=== PATIENT | female | born 1940 | race Caucasian/White ===

== ENCOUNTER → 2019-09-30 | Outpatient (CLI) | payer MEDICARE, OTHER | END | disposition home or self-care (01) | LOC: LAB SHORT 12:07 → PLD 12:07 | DX: D48.5 Neoplasm of uncertain behavior of skin (principal) | CPT/HCPCS: 88305 ==

== ENCOUNTER → 2020-02-01 | Outpatient (CLI) | payer MEDICARE, OTHER | LOC: LAB SHORT 09:04 → PLD 09:04 → LAB SHORT 02-02 09:45 | DX: D48.5 Neoplasm of uncertain behavior of skin (principal) | CPT/HCPCS: 88305 ==

== ENCOUNTER → 2020-08-01 | Outpatient (CLI) | payer MEDICARE, OTHER ==
[~2020-08-01] MED LIST: BLOOD PRESSURE; EUTHYROX50 MCG PO; WARF5 PO; WARF6 PO
== END | disposition home or self-care (01) ==
LOC: LAB 13:34 → LAB SHORT 13:34
DX: A49.9 Bacterial infection, unspecified (principal)
CPT/HCPCS: 87070; 87205

== ENCOUNTER 2020-09-23 20:17 | Emergency (ER) | payer MEDICARE, OTHER ==
[~2020-09-23] VITALS: Ht 160 cm; Wt 90.7 kg
[2020-09-23] MEDS ORDERED: WARF6 PO (20:56)
[2020-09-23] MEDS ORDERED: WARF5 PO (20:56)
[2020-09-23] MEDS ORDERED: EUTHYROX50 MCG PO (20:57)
[2020-09-23] MEDS ORDERED: BLOOD PRESSURE (21:00)
== END 2020-09-23 22:40 | disposition home or self-care (01) ==
LOC: ER 20:17
DX: S80.12XA Contusion of left lower leg, initial encounter (principal); S50.11XA Contusion of right forearm, initial encounter; Z88.0 Allergy status to penicillin; Z88.2 Allergy status to sulfonamides; Z79.01 Long term (current) use of anticoagulants; W01.190A Fall on same level from slipping, tripping and stumbling with subsequent striking against furniture, initial encounter
CPT/HCPCS: 73590; 73630; 99283-25

== ENCOUNTER → 2021-01-30 | Outpatient (CLI) | payer MEDICARE, OTHER | END | disposition home or self-care (01) | LOC: LAB SHORT 13:44 | DX: D22.4 Melanocytic nevi of scalp and neck (principal) | CPT/HCPCS: 88305 ==

== ENCOUNTER 2021-08-05 12:25 | Inpatient (IN) | payer MEDICARE, OTHER ==
[~2021-08-05] VITALS: Ht 160 cm; Wt 108.0 kg
[2021-08-05 12:48] LABS: BASOPHILS ABSOLUTE AUTO 0.05 K/mm3 (0.00-0.23); BASOPHILS PERCENT AUTO 1 % (0-2); EOSINOPHILS ABSOLUTE AUTO 0.16 K/mm3 (0.00-0.68); EOSINOPHILS PERCENT AUTO 4 % (0-6); Hematocrit 46.9 % (33.0-51.0); Hemoglobin 14.7 g/dL (11.5-16.0); IMMATURE GRAN ABSOLUTE AUTO 0.01 K/mm3 (0.00-0.10); IMMATURE GRAN PERCENT AUTO 0 % (0-1); LYMPHOCYTES PERCENT AUTO 27 % (21-46); MONOCYTES ABSOLUTE AUTO 0.54 K/mm3 (0.16-1.47); MONOCYTES PERCENT AUTO 13 % (4-13); Mean Corpuscular HGB Conc 31.3 g/dL (31.5-36.5); Mean Corpuscular Volume 96 fL (80-100); Mean Platelet Volume 11.1 fL (9.1-12.4); NEUTROPHILS ABSOLUTE AUTO 2.23 K/mm3 (1.96-9.15); NEUTROPHILS PERCENT AUTO 55 % (41-73); Platelet Count 176 K/mm3 (150-400); RDW Coefficient Variation 13.3 % (11.7-14.2); RDW Standard Deviation 47.4 fL (35.1-46.3); White Blood Cell Count 4.09 K/mm3 (4.00-11.30)
[2021-08-05 13:09] LABS: Alanine Aminotransfer (ALT/SGP 29 U/L (12-78); Albumin, Blood 3.5 g/dL (3.4-5.0); Alk Phos 72 U/L (50-136); Anion Gap 4 mmol/L (6-16); Aspartate Aminotrans (AST/SGOT 16 U/L (12-37); Bilirubin, Total 0.5 mg/dL (0.1-1.0); Blood Urea Nitrogen 15 mg/dL (8-24); Bun/Creatinine Ratio 18.5 (12.0-20.0); CO2, Blood 28 mmol/L (21-32); Chloride, Blood 108 mmol/L (98-108); Creatinine, Blood 0.81 mg/dL (0.40-1.00); Globulin, Blood 3.6 g/dL (2.2-4.0); Glomerular Filtration Rate >60 (60-); Glucose, Blood 119 mg/dL (70-99); Potassium, Blood 4.5 mmol/L (3.5-5.5); Sodium, Blood 140 mmol/L (136-145); Total Protein, Blood 7.1 g/dL (6.4-8.2)
[2021-08-05 13:37] LABS: International Normalized Ratio 1.88; Prothrombin Time Results 18.9 Sec (9.7-11.5)
[2021-08-05 15:20] LABS: Source, Urine Foley catheter
[2021-08-05 16:32] LABS: U Amphetamine Screen Not Detected; U Barbituate Screen Not Detected; U Benzodiazapine Screen Not Detected; U Buprenorphine Screen Not Detected; U Cannabinoids Screen Not Detected; U Cocaine Screen Not Detected; U Methadone Screen Not Detected; U Methamphetamine Screen Not Detected; U Opiates Screen Not Detected; U Oxycodone Screen Not Detected; U Phencyclidine Screen Not Detected; U Propoxyphene Screen Not Detected
[2021-08-05 16:39] LABS: Bilirubin, Urine Neg (Neg); Blood, Urine Neg (Neg); Glucose Qualitative, Urine Neg (Neg); Ketones, Urine Neg (Neg); Leukocyte Esterase, Urine Neg (Neg); Nitrite, Urine Neg (Neg); Protein, Urine 1+ (Neg); Urobilinogen, Urine NORM (Normal)
[2021-08-05 16:40] LABS: Appearance, Urine Clear (Clear); Color, Urine Pale Yellow (P-Yellow)
[2021-08-06 04:27] LABS: BASOPHILS ABSOLUTE AUTO 0.03 K/mm3 (0.00-0.23); BASOPHILS PERCENT AUTO 0 % (0-2); EOSINOPHILS ABSOLUTE AUTO 0.01 K/mm3 (0.00-0.68); EOSINOPHILS PERCENT AUTO 0 % (0-6); Hematocrit 40.9 % (33.0-51.0); IMMATURE GRAN ABSOLUTE AUTO 0.02 K/mm3 (0.00-0.10); IMMATURE GRAN PERCENT AUTO 0 % (0-1); LYMPHOCYTES ABSOLUTE AUTO 0.89 K/mm3 (0.84-5.20); LYMPHOCYTES PERCENT AUTO 13 % (21-46); MONOCYTES ABSOLUTE AUTO 0.51 K/mm3 (0.16-1.47); MONOCYTES PERCENT AUTO 7 % (4-13); Mean Corpuscular HGB 30.2 pg (26.0-34.0); Mean Corpuscular HGB Conc 31.8 g/dL (31.5-36.5); Mean Corpuscular Volume 95 fL (80-100); Mean Platelet Volume 11.1 fL (9.1-12.4); NEUTROPHILS ABSOLUTE AUTO 5.66 K/mm3 (1.96-9.15); NEUTROPHILS PERCENT AUTO 80 % (41-73); Platelet Count 190 K/mm3 (150-400); RDW Coefficient Variation 13.1 % (11.7-14.2); RDW Standard Deviation 46.4 fL (35.1-46.3); Red Blood Cell Count 4.31 M/mm3 (3.80-5.20); White Blood Cell Count 7.12 K/mm3 (4.00-11.30)
[2021-08-06 04:55] LABS: Alanine Aminotransfer (ALT/SGP 27 U/L (12-78); Albumin, Blood 2.9 g/dL (3.4-5.0); Albumin/Globulin Ratio 0.9 (0.8-1.8); Alk Phos 62 U/L (50-136); Anion Gap 5 mmol/L (6-16); Aspartate Aminotrans (AST/SGOT 18 U/L (12-37); Bilirubin, Total 0.7 mg/dL (0.1-1.0); Blood Urea Nitrogen 13 mg/dL (8-24); Bun/Creatinine Ratio 18.1 (12.0-20.0); CO2, Blood 27 mmol/L (21-32); Calcium, Blood 8.9 mg/dL (8.5-10.1); Chloride, Blood 110 mmol/L (98-108); Creatinine, Blood 0.72 mg/dL (0.40-1.00); Globulin, Blood 3.2 g/dL (2.2-4.0); Glomerular Filtration Rate >60 (60-); Glucose, Blood 144 mg/dL (70-99); Potassium, Blood 3.8 mmol/L (3.5-5.5); Sodium, Blood 142 mmol/L (136-145); Total Protein, Blood 6.1 g/dL (6.4-8.2)
--- NOTE | 2021-08-06 05:54 | NUR ---
End of shift summary Overnoc was overall stable, pt mentation/ exp aphasia slowly improving, she is starting to form short sentences, and express her needs, she gets very frustrated trying to find the right word, and teers up, she has difficulty following commands as well, so possibilty of receptive aphasia too. VSS, 1-2L NC while asleep, room air when awake, internittent abdominal pain/ nausea, will continue to monitor JULIANE Mclaughlin
--- NOTE | 2021-08-06 17:09 | NUR ---
PT SUMMARY: PT TRANSITIONED TO MEDICAL STATUS WITH TELE. PT ALERT AND TALKING HAS EXPRESSIVE APHASIA GETS FRUSTRATED KEEPS SAYING "I DONT KNOW WHAT YOU WANT ME TO DO.." CAN ONLY STATE NAME ELIZABETH, ORIENTED TO FAMILY. PT WAS YELLING OUT THIS AM ASKING TO USE THE BATHROOM GOT FRUSTRATED INSISTED TO USE THE BEDSIDE COMMODE GOT A LITTLE IMPULSIVE HAS POSSIBLY SOME APRAXIA TOO UNABLE TO FOLLOW SOME COMMANDS OR HAS SOME POOR DEPARTMENT STORE DOOR GREETER HOWEVER PT WAS ABLE TO STAND AND TRANSFER TO BEDSIDE COMMODE WITH NO ISSUES ONE PERSON ASSISTS. PT WAS ABLE TO WORK WITH THE PHYSICAL THERAPIST AND VERIFIED 1PA FOR TRANSFERS. AWAITING FOR PT TO GET EVALUATED BY SPEECH THERAPIST IN AM, ORAL SWABS OFFERED AND DONE FOR THE SHIFT. PT ABLE TO HELP SELF TURN AND REPOSITION IN BED, RECEIVED A BED BATH TODAY, NO BM REPORTED PT NO SUCCESS IN BSC THIS SHIFT. PETERSON DRAINING YELLOW URINE WITH RED SEDIMENTS VIA GRAVITY. FAMILY AT BEDSIDE ALL SHIFT UPDATED REGARDING PT'S STATUS. VITALS HRR SR 70'S, BP SYSTOLIC 130'S, SATS ABOVE 95% ON RA, AFEBRILE. DENIES ANY KIND OF PAIN/DISCOMFORT. LR RUNNING AT 75MLS/HR NO OTHER ISSUES REPORTED. CALL LIGHTS IN REACH WILL REPORT TO ONCOMING SHIFT
--- NOTE | 2021-08-07 17:38 | NUR ---
PT SUMMARY: NO ACUTE CHANGE FOR THE SHIFT VITALS REMAINED STABLE. PT WORKED WITH SPEECH THERAPIST TODAY DIET RESUMED, ON REGULAR DIET, PT TOLERATED WELL. 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 PAIN MEDICINE GIVEN ONCE AND WAS EFFECTIVE. AT BEDSIDE ALL SHIFT WAS EMOTIONAL ABOUT PT'S SITUATION. EXPRESSIVE APHASIA SLIGHTLY IMPROVING, PT WAS GIVEN PEN AND BOARD FOR PT TO PRACTICE WRITING. NO OTHER ISSUES REPORTED, PETERSON DRAINING YELLOW URINE VIA GRAVITY. PT NOW EATING DINNER, CALL LIGHTS IN REACH WILL REPORT TO ONCOMING SHIFT
[2021-08-08 03:47] LABS: CHOL/HDL RATIO 3.6; Cholesterol 153 mg/dL (50-200); HDL Cholesterol 43 mg/dL (>39); LDL/HDL RATIO 2.1; Low Density Lipoprotein Chol 92 mg/dL (0-110); Triglycerides 92 mg/dL (30-160); Very Low Density Lipoprot Chol 18 mg/dL (6-32)
--- NOTE | 2021-08-08 04:58 | NUR ---
End of shift summary Pt Neuro has much improved, conversations starting to make sense, she is asking appropriate questions at times, she appears hopefully and less emotional tonight, VSS, no N/V overnoc like last night, will continue to monitor JULIANE Mclaughlin
--- NOTE | 2021-08-08 08:33 | NUR ---
NURSING PCU DAYSHIFT: Assumed care of pt at approx 0700. Alert, mildly anxious, noted expressive and receptive aphasia. Difficulty expressing needs though is cooperative w/care. Does not appear to be in any discomfort at this time. Pupils equal, general weakness noted but strength is bilaterally equal, no facial droop. Skin is fragile, discoloration to BLE, no breakdown noted. Tele in place, NSR w/HR 70's, SBP 150's, trace BLE edema. L/S cta in upper lobes, fine bibasilar crackles, O2 sat 99% on RA, no noted dyspnea or cough. Abd obese, SNT, BT+, FC w/stat lock in place draining clear/pink tinged urine. PIV x1, s/l. S/O at bedside this a.m. Discussed desire to take patient home with H/H instead of SNF. Pt OOB to chair using FWW and SBA, tolerated well. S/O assisting patient with breakfast. No needs identified at this time, s/o denies any current questions/needs. Call light in reach, safety alarms used when pt alone in room. Awaiting rounding from PMD, cont to monitor for any changes.
--- NOTE | 2021-08-08 11:09 | NUR ---
Supportive visit this afternoon. Spoke with Dr Rivera, Primary RN [facility], discussed case and concerns. Pt sitting in chair upon arrival. Pt has family member sitting beside her. Pt attempts to respond with some responses that are non sensical and some that appear appropriate. Spoke with Pt's spouse Gigi and Pt's brother. Answered questions and offered therapeutic listening. Reviewed plan of care, discussed recommendations and options. Family expresses appreciation and report plan to discuss options amongst each other before making a decision. Palliative Care will remain available.
--- NOTE | 2021-08-08 17:37 | NUR ---
NURSING PCU DAYSHIFT SUMMARY: No significant changes noted t/o the shift. VS have remained stable, cardiac and respiratory status unchanged. Pt worked with PT/OT/ST t/o the shift and spent majority of the day OOB in a chair, tolerated well. Ambulated approx 250 ft t/o the halls with and w/o FWW, no issues. Continues to experience expressive and receptive aphasia without improvement from a.m. assessment. Early in shift pt appeared to have abd discomfort, bowel care started by PMD and miralax administered. Able to have medium formed BM with a lot of straining and continues to pass gas though no abd complaints at this time. Has demonstrated intermittent discomfort of RUE approx 3x today though resolves within seconds. Ext remains w/good perfusion, no swelling, good rotation w/o discomfort. S/O has been at bedside t/o most of the shift. Becomes very anxious at times though appears related to concern for wifes current medical status. A lot of education has been provided to s/o and other family throughout the day and has been received well. No s/s of acute distress at this time. Call light in reach of family members, continue to monitor for any changes.
--- NOTE | 2021-08-08 22:15 | NUR ---
PT IS ALERT AND IS RESPONDING TO SOME OF THE QUESTIONS ASKED TO HER. PT SHOWS NO PHYSICAL DEFICIT BUT APHASIA STILL PRESENT. VSS AND O2 SATS >92% ON RM AIR. PT DENYING ANY FURTHER NEEDS AT THIS TIME.
--- NOTE | 2021-08-09 05:58 | NUR ---
FLOORING HELPER SUMMARY PT IS ALERT AND ORIENTED ALTHOUGH AT TIMES HER APHASIA MAKES IT SEEM THOUGH SHE IS CONFUSED BUT WHEN GIVEN THE PROPER TIME AND ASSITANCE THE PT CAN RESPOND APPROPRIATELY TO QUESTIONS ASKED. PT HAS BEEN ABLE TO AMBULATE TO THE BATHROOM SEVERAL TIMES THIS SHIFT W MINIMAL ASSISTANCE USING THE FWW. PT VOIDING WELL ALTHOUGH SHE IS HAVING TRACE BLEEDING IN THE TOILET WHEN VOIDING FROM UNKNOWN LOCATION. VSS AND O2 SATS >92% ON RM AIR. NO PHYSICAL DEFICITS NOTED THIS SHIFT. PT APPEARED TO BE VERBALIZING BETTER TOWARDS THE END OF THE SHIFT TALKING IN COMPLETE APPROPRIATE SENTANCES. TELE SHOWING SR 70'S THIS SHIFT. WILL REPORT TO ONCOMING RN.
--- NOTE | 2021-08-09 16:17 | NUR ---
Pt sitting in chair with family at bedside. Pt denies discomfort at this time. Pt appears to still be struggling with expressive aphasia but appears cheerful. Spoke with Pt's spouse Gigi and their daughter regarding considering completing POLST. Gigi and daughter are agreeable to complete POLST for Pt. Educated on life sustaining treatments including risk factors of CPR and each section to complete. Educated on each option. Assisted with completing POLST per family request. Pt's wishes on POLST are for DNR and Limited Treatment. Family express appreciation and report no other concerns at this time. Spoke with Dr Rivera. Dr Rivera will sign POLST when she rounds tomorrow. Palliative Care will deliver copy of POLST to medical records upon MD signature.
--- NOTE | 2021-08-09 17:36 | NUR ---
PT SUMMARY: NO ACUTE CHANGE FOR THE SHIFT. PT TO DISCHARGE TO IRU UP IN [place], DIRECTOR INSTRUMENTATION UPDATED THE FAMILY AT BEDSIDE, PT TO HAVE COVID TEST AND HAS TO BE TRANSFERRED WITHIN 48 HRS ONCE COVID TEST REUSLT RECEIVED. PT WORKED WITH PT/OT/ST TODAY. GOT UP AND AMBULATED AROUNF THE UNIT WITH A CANE, HAS BEEN GETTING UP TO USE THE BATHROOM AND UP IN THE CAHIR FOR MEALS. VITALS HAS BEEN STABLE. ABLE TO MAKE NEEDS KNOWN, APHASIA SEEMS TO BE IMPROVING PER THERAPISTS. PT C/O TINGLING/NUMBNESS ON RIGHT ARM WHERE PIV WAS PLACED COBAN REMOVED PT OFFERED ROLLED WASHCLOTH FOR PT TO SQUEEZE AND EXERCISE HAND, PT REPORTED IT WAS HELPING. NO OTHER ISSUES REPORTED, PT EATING AND DRINKING GREAT. FAMILY AT BEDSIDE MOST OF THE SHIFT. WILL REPORT TO ONCOMING SHIFT
--- NOTE | 2021-08-09 20:38 | NUR ---
Assumed care 1900. It is difficult to assess orientation due to severe expressive aphasia. I attempted written communitcation with pt and she did write out some answers, but also wrote things not related to questions. Pt is alert. Movement in bilateral arms and bilateral legs are equal. Pupils are reactive to light and equal. Evening meds given whole with thin liquids without any difficulty. VSS on RA.
--- NOTE | 2021-08-09 22:56 | NUR ---
Tele notified of more frequent PACs, VSS will continue to monitor.
--- NOTE | 2021-08-10 04:00 | NUR ---
Equipment Operator/Laborer/Supervisor Note: Pt has moderate-severe expressive/receptive aphasia. Difficult to assess orientation. Pt follows directions well and uses the call light properly. Written communication attempted with little success. Bilateral upper and lower extremities appear equal and strong when assessed. Pupils equal and reactive. VSS on RA. Tele: SR w/ frequent PACs, 60s. Pt up to bathroom with minimal assist, mainly just supervision.
--- NOTE | 2021-08-10 13:48 | NUR ---
Pt resting in bed with spouse at bedside. Pt appears to be in good spirits. Pt denies pain and discomfort at this time. Pt and spouse report no concerns at this time. Hospitalist has signed POLST. Obtained copies for medical record and copy placed in chart to go with Pt to facility. Returned original POLST to spouse with instructions to hang on refridgerator. Spoke with Primary RN Marily and discussed case. Pt to D/C to IRU tomorrow. Delivered copy of Pt's POLST and AD to medical records. Palliative Care will remain available.
[2021-08-10 15:52] LABS: Influenza A, PCR NEGATIVE (NEGATIVE); Influenza B, PCR NEGATIVE (NEGATIVE); Resp Syncytial Virus, PCR NEGATIVE (NEGATIVE); SARS-Cov-2 (COVID-19) PCR, MMC NEGATIVE (NEGATIVE)
--- NOTE | 2021-08-10 17:30 | NUR ---
SHIFT SUMMARY; ASSUMED CARE AT 0700. A/A/OX3. EXPRESSIVE APHAGIA REMAINS. WORSE AT TIMES THAN OTHERS. UNDERSTANDS AND FOLLOWS DIRECTIONS. ATTEMPTS TO RESPOND TO QUESTIONS BUT AT TIMES HAS WORD SALAD. AMBULATES WITH STANDBY ASSIST. SHOWER TODAY WITH ASSISTANCE. SPOUSE AT BESIDE MOST OF DAY. COMPLETES ADL'S WITH MINIMAL ASSISTANCE. PLAN TO TRANSFER TOMORROW TO REHAB IN [facility] SET UP FOR 10AM. WILL CONTINUE TO MONITOR AND TREAT UNITL CHANGE OF SHIFT.
--- NOTE | 2021-08-10 20:45 | NUR ---
Assumed care 1900. VSS on RA. Pt resting in chair, scheduled meds given per orders. Expressive and receptive aphasia. All extremities are moving equally.
--- NOTE | 2021-08-11 04:42 | NUR ---
Armed Security Officer Note: Pt is alert, difficult to assess orientation due to expressive aphasia. Pt does not appear to be confused at this time, using call light appropriatly. VSS on RA. Tele: 70-80s. Pt slept well overnight. Pt will d/c to inpt rehab at 10am 08/11/21 per notes. COVID test was negative, see results.
--- NOTE | 2021-08-11 10:20 | NUR ---
NO ACUTE EVENTS SINCE START OF SHIFT, VSS. PT ALERT AND ORIENTED, ABLE TO CALL APPROPRIATELY AND FOLLOW COMMANDS. AGREEABLE TO CARE. PT ABLE TO AMBULATE TO THE BATHROOM WITH ONLY STANDBY ASSISTANCE FOR SAFETY. NO SIGNS OF ACUTE DISTRESS. TAKEN BY TRANSPORT BY WHEELCHAIR FOR TRANSFER TO FACILITY. PT'S AND FAMILY AT BEDSIDE AT TIME OF DEPARTURE, QUESTIONS ANSWERED TO SATISFACTION. REPORT GIVEN TO CAESAR CARDOZO AT [facility], ALL QUESTIONS ANSWERED.
== END 2021-08-11 10:11 | disposition home or self-care (01) | DRG 64 ==
LOC: ER 12:25 → PCU 17:32
PROVIDERS: Internal Medicine; Physician Assistant; ADMIT Internal Medicine
DX: I63.81 Other cerebral infarction due to occlusion or stenosis of small artery (principal); G93.6 Cerebral edema; Z66 Do not resuscitate; Z51.5 Encounter for palliative care; Z20.822 Contact with and (suspected) exposure to COVID-19; R73.03 Prediabetes; I10 Essential (primary) hypertension; E03.9 Hypothyroidism, unspecified; R29.810 Facial weakness; R47.01 Aphasia; K59.00 Constipation, unspecified; Z86.718 Personal history of other venous thrombosis and embolism; Z98.890 Other specified postprocedural states; Z88.0 Allergy status to penicillin; Z88.2 Allergy status to sulfonamides; Z79.01 Long term (current) use of anticoagulants; Z79.899 Other long term (current) drug therapy
CPT/HCPCS: 0241U; 36415; 51702; 70450; 70496; 70498; 70551; 71045; 80053; 80061; 82947; 83036; 84443; 85025; 85610; 92507; 92523; 92610; 93005; 93010; 93306; 96374; 96375; 96376; 97110; 97116; 97129; 97161; 97166; 97530; 97535; 99285-25; A9270; J1650; J2405; J3010; J7030; J7120; Q9967

== ENCOUNTER 2021-08-29 11:13 | Inpatient (IN) | payer MEDICARE, OTHER ==
[~2021-08-29] VITALS: Ht 160 cm; Wt 100.0 kg
[2021-08-29 11:50] LABS: BASOPHILS ABSOLUTE AUTO 0.07 K/mm3 (0.00-0.23); BASOPHILS PERCENT AUTO 1 % (0-2); EOSINOPHILS ABSOLUTE AUTO 0.19 K/mm3 (0.00-0.68); EOSINOPHILS PERCENT AUTO 3 % (0-6); Hematocrit 43.4 % (33.0-51.0); Hemoglobin 13.9 g/dL (11.5-16.0); IMMATURE GRAN ABSOLUTE AUTO 0.03 K/mm3 (0.00-0.10); IMMATURE GRAN PERCENT AUTO 1 % (0-1); LYMPHOCYTES ABSOLUTE AUTO 0.98 K/mm3 (0.84-5.20); LYMPHOCYTES PERCENT AUTO 16 % (21-46); MONOCYTES PERCENT AUTO 10 % (4-13); Mean Corpuscular HGB 30.8 pg (26.0-34.0); Mean Corpuscular Volume 96 fL (80-100); Mean Platelet Volume 11.1 fL (9.1-12.4); NEUTROPHILS ABSOLUTE AUTO 4.39 K/mm3 (1.96-9.15); NEUTROPHILS PERCENT AUTO 70 % (41-73); Platelet Count 177 K/mm3 (150-400); RDW Coefficient Variation 13.1 % (11.7-14.2); RDW Standard Deviation 46.1 fL (35.1-46.3); Red Blood Cell Count 4.52 M/mm3 (3.80-5.20); White Blood Cell Count 6.26 K/mm3 (4.00-11.30)
[2021-08-29 12:03] LABS: Source, Urine Clean Catch
[2021-08-29 12:06] LABS: Alanine Aminotransfer (ALT/SGP 30 U/L (12-78); Albumin, Blood 3.5 g/dL (3.4-5.0); Albumin/Globulin Ratio 1.1 (0.8-1.8); Alk Phos 70 U/L (50-136); Anion Gap 5 mmol/L (6-16); Aspartate Aminotrans (AST/SGOT 27 U/L (12-37); Bilirubin, Total 0.6 mg/dL (0.1-1.0); Blood Urea Nitrogen 13 mg/dL (8-24); Bun/Creatinine Ratio 16.7 (12.0-20.0); CO2, Blood 26 mmol/L (21-32); Calcium, Blood 10.2 mg/dL (8.5-10.1); Chloride, Blood 110 mmol/L (98-108); Creatinine, Blood 0.78 mg/dL (0.40-1.00); Globulin, Blood 3.3 g/dL (2.2-4.0); Glomerular Filtration Rate >60 (60-); Glucose, Blood 119 mg/dL (70-99); Potassium, Blood 4.4 mmol/L (3.5-5.5); Sodium, Blood 141 mmol/L (136-145); Total Protein, Blood 6.8 g/dL (6.4-8.2)
[2021-08-29 12:31] LABS: Appearance, Urine Clear (Clear); Bilirubin, Urine Neg (Neg); Blood, Urine Neg (Neg); Color, Urine Yellow (P-Yellow); Glucose Qualitative, Urine Neg (Neg); Ketones, Urine Neg (Neg); Leukocyte Esterase, Urine Neg (Neg); Nitrite, Urine Neg (Neg); Protein, Urine Neg (Neg); Urobilinogen, Urine NORM (Normal)
[2021-08-29] MEDS ORDERED: LISI5 PO (18:58)
[2021-08-29] MEDS ORDERED: ASPI325 PO (18:58)
[2021-08-29] MEDS ORDERED: METO25ER PO (18:59)
[2021-08-29] MEDS ORDERED: ATOR10 PO (19:00)
[2021-08-29] MEDS ORDERED: JANTOVEN5 M2 PO (20:57)
[2021-08-29] MEDS ORDERED: JANTOVEN1 M2 PO (20:58)
[2021-08-29] MEDS ORDERED: EFUDEX40 GM TOP (21:01)
[2021-08-29] MEDS ORDERED: AQUAPHOR ITCH R28 GM TOP (21:02)
[2021-08-29] MEDS ORDERED: Metronidazole T45 GM TOP (21:03)
[2021-08-29] MEDS ORDERED: DICLOFENAC SOD100 G1 TOP (21:04)
[2021-08-29] MEDS ORDERED: BACLOFEN5 M5 PO (21:05)
[2021-08-30 01:59] LABS: BASOPHILS ABSOLUTE AUTO 0.04 K/mm3 (0.00-0.23); BASOPHILS PERCENT AUTO 1 % (0-2); EOSINOPHILS ABSOLUTE AUTO 0.23 K/mm3 (0.00-0.68); EOSINOPHILS PERCENT AUTO 4 % (0-6); Hematocrit 38.6 % (33.0-51.0); Hemoglobin 12.4 g/dL (11.5-16.0); IMMATURE GRAN ABSOLUTE AUTO 0.01 K/mm3 (0.00-0.10); IMMATURE GRAN PERCENT AUTO 0 % (0-1); LYMPHOCYTES ABSOLUTE AUTO 0.45 K/mm3 (0.84-5.20); LYMPHOCYTES PERCENT AUTO 9 % (21-46); MONOCYTES ABSOLUTE AUTO 0.44 K/mm3 (0.16-1.47); MONOCYTES PERCENT AUTO 9 % (4-13); Mean Corpuscular HGB 30.5 pg (26.0-34.0); Mean Corpuscular HGB Conc 32.1 g/dL (31.5-36.5); Mean Corpuscular Volume 95 fL (80-100); Mean Platelet Volume 10.8 fL (9.1-12.4); NEUTROPHILS ABSOLUTE AUTO 4.02 K/mm3 (1.96-9.15); NEUTROPHILS PERCENT AUTO 77 % (41-73); Platelet Count 158 K/mm3 (150-400); Red Blood Cell Count 4.07 M/mm3 (3.80-5.20); White Blood Cell Count 5.19 K/mm3 (4.00-11.30)
[2021-08-30 02:12] LABS: International Normalized Ratio 1.13; Prothrombin Time Results 11.8 Sec (9.7-11.5)
[2021-08-30 02:18] LABS: Alanine Aminotransfer (ALT/SGP 24 U/L (12-78); Albumin/Globulin Ratio 1.1 (0.8-1.8); Alk Phos 61 U/L (50-136); Anion Gap 6 mmol/L (6-16); Aspartate Aminotrans (AST/SGOT 13 U/L (12-37); Bilirubin, Total 0.7 mg/dL (0.1-1.0); Blood Urea Nitrogen 8 mg/dL (8-24); Bun/Creatinine Ratio 11.8 (12.0-20.0); CO2, Blood 27 mmol/L (21-32); Calcium, Blood 9.4 mg/dL (8.5-10.1); Chloride, Blood 111 mmol/L (98-108); Creatinine, Blood 0.68 mg/dL (0.40-1.00); Globulin, Blood 2.7 g/dL (2.2-4.0); Glomerular Filtration Rate >60 (60-); Glucose, Blood 118 mg/dL (70-99); Potassium, Blood 3.4 mmol/L (3.5-5.5); Sodium, Blood 144 mmol/L (136-145); Total Protein, Blood 5.7 g/dL (6.4-8.2)
--- NOTE | 2021-08-30 05:02 | NUR ---
SHIFT SUMMARY PT ADMITTED TO ROOM 340 FROM ER. PT ALERT, ORIENTED X 3, EXPRESSIVE APHASIA NOTED. PT UP WITH SBA AND USES WALKER OR CANE FOR AMBULATION, VOIDING WITHOUT DIFFICULTY. VSS, SKIN INTACT, NO C/O PAIN. NPO WITH CASHIERS BUSSERS FOOD RUNNERS EVAL ORDERED, IVF INFUSING PER ORDERS. ANTICIPATE D/C WHEN MEDICALLY STABLE.
--- NOTE | 2021-08-30 17:43 | NUR ---
SUMMARY- PT ALERT AND ORIENTED- NEURO DEFICIT INCLUDED SOME EXPRESSIVE APHASIA AND IDIATIONAL APRAXIA, DELAY IN SPEECH. SWALLOW INTACT, CLEARED BY SPEECH FOR GEN DIET, MEDS IN APPLESAUCE. MRI COMPLETE AND DR HOOKS SPOKE WITH DR ARECHIGA. STARTED ON ACYCLOVIRE INCASE VIRAL LESION. PT AMBULATES TO BATHROOM SBA. VOIDING. TOLERATING FOOD AND FLUIDS. IVF DC'D. TELE DC'D. PLAN FOR DISCHARGE TOMORROW WITH [facility]
--- NOTE | 2021-08-31 04:49 | NUR ---
PT A & OX TO SELF AND PLACE. UNABLE TO FIND THE RIGHT WORDS TO COMMUNICATE. PT FRUSTATED AT TIMES. REGULAR DIET WITH THIN LIQUIDS. SBA, WITH CANE. PT C/O HEADACHE AND NECK PAIN. PT GIVEN PRN IV FENTANYL FOR PAIN ORDERED. V/S WNL. IV TO R) AC FLUSHED W/O DIFFICULTY. PT VOIDED W/O DIFFICULTY. NO BM THIS SHIFT. WILL CONTINUE TO MONITOR.
[2021-08-31] MEDS ORDERED: ATOR80 PO (13:01)
[2021-08-31] MEDS ORDERED: ACYC800 PO (13:04)
--- NOTE | 2021-08-31 13:33 | NUR ---
Spoke with Dr Triana and Primary RN Christophe prior to Pt visit and discussed case. Brief supportive visit as Pt is being D/C. Pt and spouse remembers this RN from prior hospital stay. Offered therapeutic listening and reviewed plan for Pt to F/U with ST outpatient. Pt and spouse express appreciation and report no concerns at this time. Palliative Care will remain available.
--- NOTE | 2021-08-31 18:18 | NUR ---
PT DISCHARGED 1442 WITH DISCHARGE INSTRUCTIONS, PT WILL HAVE OUUTPATIENT PT/OT/ST. WILL F/U WITH NEURO ESCOBAR, FAXED INFO FOR INITIATING HER A PATIENT. RX FAXED TO [facility]. WHEELCHAIR TX OUT TO PRIVATE CAR.
== END 2021-08-31 14:42 | disposition home or self-care (01) | DRG 56 ==
LOC: ER 11:13 → MEDS 19:54
PROVIDERS: Emergency Medicine; ADMIT Internal Medicine
DX: I69.320 Aphasia following cerebral infarction (principal); G93.6 Cerebral edema; G93.5 Compression of brain; I69.390 Apraxia following cerebral infarction; Z51.5 Encounter for palliative care; R73.03 Prediabetes; E78.5 Hyperlipidemia, unspecified; Z66 Do not resuscitate; E03.9 Hypothyroidism, unspecified; M62.838 Other muscle spasm; Z79.82 Long term (current) use of aspirin; Z79.899 Other long term (current) drug therapy; Z88.0 Allergy status to penicillin; Z88.2 Allergy status to sulfonamides
CPT/HCPCS: 36415; 70450; 70496; 70498; 70553; 80053; 81003; 85025; 85610; 85651; 86140; 86694; 92610; 93005; 93010; 97110; 97112; 97116; 97129; 97162; 97166; 97535; 99285-25; A9270; A9579; G0378; J0133; J1650; J3010; J7030; J7060; Q9967

== ENCOUNTER 2021-09-22 19:25 | Inpatient (IN) | payer MEDICARE, OTHER ==
[~2021-09-22] VITALS: Ht 160 cm; Wt 99.7 kg
[~2021-09-22 19:25] MED LIST changes: +ACYC800 PO; +AQUAPHOR ITCH R28 GM TOP; +ASPI325 PO; +ATOR10 PO; +ATOR80 PO; +BACLOFEN5 M5 PO; +DICLOFENAC SOD100 G1 TOP; +EFUDEX40 GM TOP; +JANTOVEN1 M2 PO; +JANTOVEN5 M2 PO; +LISI5 PO; +METO25ER PO; +Metronidazole T45 GM TOP
[2021-09-22 19:58] LABS: BASOPHILS ABSOLUTE AUTO 0.04 K/mm3 (0.00-0.23); BASOPHILS PERCENT AUTO 1 % (0-2); EOSINOPHILS ABSOLUTE AUTO 0.13 K/mm3 (0.00-0.68); EOSINOPHILS PERCENT AUTO 2 % (0-6); Hematocrit 46.6 % (33.0-51.0); Hemoglobin 14.7 g/dL (11.5-16.0); IMMATURE GRAN ABSOLUTE AUTO 0.02 K/mm3 (0.00-0.10); IMMATURE GRAN PERCENT AUTO 0 % (0-1); LYMPHOCYTES ABSOLUTE AUTO 0.97 K/mm3 (0.84-5.20); LYMPHOCYTES PERCENT AUTO 14 % (21-46); MONOCYTES ABSOLUTE AUTO 0.48 K/mm3 (0.16-1.47); MONOCYTES PERCENT AUTO 7 % (4-13); Mean Corpuscular HGB 30.4 pg (26.0-34.0); Mean Corpuscular HGB Conc 31.5 g/dL (31.5-36.5); Mean Corpuscular Volume 97 fL (80-100); Mean Platelet Volume 11.1 fL (9.1-12.4); NEUTROPHILS ABSOLUTE AUTO 5.41 K/mm3 (1.96-9.15); NEUTROPHILS PERCENT AUTO 77 % (41-73); Platelet Count 190 K/mm3 (150-400); RDW Coefficient Variation 13.4 % (11.7-14.2); RDW Standard Deviation 48.1 fL (35.1-46.3); Red Blood Cell Count 4.83 M/mm3 (3.80-5.20); White Blood Cell Count 7.05 K/mm3 (4.00-11.30)
[2021-09-22 20:18] LABS: Albumin, Blood 4.1 g/dL (3.4-5.0); Albumin/Globulin Ratio 1.3 (0.8-1.8); Calcium, Blood 10.8 mg/dL (8.5-10.1); Creatinine, Blood 0.85 mg/dL (0.40-1.00); Globulin, Blood 3.2 g/dL (2.2-4.0); Potassium, Blood 3.9 mmol/L (3.5-5.5); Total Protein, Blood 7.3 g/dL (6.4-8.2)
[2021-09-22] MEDS ORDERED: ELIQUIS5 M2 PO (20:28)
[2021-09-22 21:04] LABS: International Normalized Ratio 1.14; Prothrombin Time Results 11.9 Sec (9.7-11.5)
[2021-09-23] MEDS ORDERED: XARELTO20 M1 PO (00:24)
[2021-09-23 05:17] LABS: BASOPHILS ABSOLUTE AUTO 0.05 K/mm3 (0.00-0.23); BASOPHILS PERCENT AUTO 1 % (0-2); EOSINOPHILS ABSOLUTE AUTO 0.15 K/mm3 (0.00-0.68); EOSINOPHILS PERCENT AUTO 3 % (0-6); Hematocrit 38.2 % (33.0-51.0); Hemoglobin 12.2 g/dL (11.5-16.0); IMMATURE GRAN ABSOLUTE AUTO 0.02 K/mm3 (0.00-0.10); IMMATURE GRAN PERCENT AUTO 0 % (0-1); LYMPHOCYTES ABSOLUTE AUTO 1.01 K/mm3 (0.84-5.20); LYMPHOCYTES PERCENT AUTO 18 % (21-46); MONOCYTES ABSOLUTE AUTO 0.58 K/mm3 (0.16-1.47); MONOCYTES PERCENT AUTO 10 % (4-13); Mean Corpuscular HGB 31.1 pg (26.0-34.0); Mean Corpuscular HGB Conc 31.9 g/dL (31.5-36.5); Mean Corpuscular Volume 97 fL (80-100); Mean Platelet Volume 11.4 fL (9.1-12.4); NEUTROPHILS ABSOLUTE AUTO 3.81 K/mm3 (1.96-9.15); NEUTROPHILS PERCENT AUTO 68 % (41-73); Platelet Count 162 K/mm3 (150-400); RDW Coefficient Variation 13.2 % (11.7-14.2); RDW Standard Deviation 47.8 fL (35.1-46.3); Red Blood Cell Count 3.92 M/mm3 (3.80-5.20); White Blood Cell Count 5.62 K/mm3 (4.00-11.30)
[2021-09-23 05:41] LABS: Albumin, Blood 2.9 g/dL (3.4-5.0); Albumin/Globulin Ratio 1.1 (0.8-1.8); Bilirubin, Total 0.8 mg/dL (0.1-1.0); Bun/Creatinine Ratio 10.6 (12.0-20.0); Calcium, Blood 9.1 mg/dL (8.5-10.1); Creatinine, Blood 0.76 mg/dL (0.40-1.00); Globulin, Blood 2.7 g/dL (2.2-4.0); Potassium, Blood 3.6 mmol/L (3.5-5.5); Total Protein, Blood 5.6 g/dL (6.4-8.2)
--- NOTE | 2021-09-23 05:45 | NUR ---
NEW ADMISSION FROM ER. PT NOTED WITH SEVERE APHASIA, NOT ABLE TO COMMUNICATE AND BECOMING FRUSTRATRED. ASKED PT YES OR NO QUESTIONS HOWEVER PT INCREASINGLY FRUSTRATED STATING "I DON'T KNOW." PT ASSISTED TO COMMODE WITH TWO PEOPLE, UNSTEADY AND BECOMES FRUSTRATED DUE TO NOT BEING ABLE TO MOVE EASILY. UA ORDERED AFTER PT USED COMMODE WILL CONTINUE TO TRY TO COLLECT. HOME MED NOT FINISHED DUE TO PT NOT BEING ABLE TO PROVIDE HISTORY AND THAIS OLIVO CALLED [facility] HE IS EXTREMLY HARD OF HEARING AND HAVING A VERY HARD TIME OVER PHONE. PT TO BRING MEDICATION LIST THIS MORNING. MRI/MRA FORM ALSO NOT DONE FOR SAME REASON, WILL COMPLETE ONCE IS HERE. PT ABLE TO SLOWLY LIFT RIGHT ARM AND LEG NO DRIFT NOTED. PT HAS NO GRASP TO RIGHT HAND. PT MAINTAINED NPO PER ORDER. NO OTHER CHANGES NOTED THIS SHIFT.
[2021-09-23 07:02] LABS: Source, Urine Straight Cath
[2021-09-23 07:23] LABS: Appearance, Urine Clear (Clear); Bilirubin, Urine Neg (Neg); Blood, Urine 1+ (Neg); Color, Urine Yellow (P-Yellow); Glucose Qualitative, Urine Neg (Neg); Ketones, Urine Neg (Neg); Leukocyte Esterase, Urine 1+ (Neg); Nitrite, Urine Neg (Neg); Protein, Urine Neg (Neg); Specific Gravity, Urine 1.015 (1.003-1.022); Urobilinogen, Urine NORM (Normal)
--- NOTE | 2021-09-23 07:23 | NUR ---
CALLED MRI- PT HAS GARBLED SPEECH AND WORD SALAD, UNABLE TO COMPLETE MRI SCREENING FORM. PER REPORT FROM NIGHT RN SPOUSE IS TOO HARD OF HEARING TO ANSWER THE QUESTIONS OVER THE PHONE. PT DID HAVE AN MRI ON THE 4TH OF THIS MONTH. THERE HAVE BEEN NO OTHER PROCEDURES SINCE THAT MRI THAT CAN BE DETERMINED. FUNDS DEVELOPMENT DIRECTOR IS AWARE WE CAN POSSIBLY USE THAT SCREENING FORM.
[2021-09-23 07:41] LABS: Red Blood Cells, Urine 0-2 /hpf (0-2); Squamous Epithelial Cells Few /hpf (Few)
[2021-09-23 07:42] LABS: Amorphous Light (0-Heavy); Bacteria Rare /hpf; Hyaline Casts 0-2 /lpf (0-2)
[2021-09-23 07:43] LABS: Mucus Light (0-Heavy)
[2021-09-23 07:47] LABS: U Amphetamine Screen Not Detected; U Barbituate Screen Not Detected; U Benzodiazapine Screen Not Detected; U Buprenorphine Screen Not Detected; U Cannabinoids Screen Not Detected; U Cocaine Screen Not Detected; U Methadone Screen Not Detected; U Methamphetamine Screen Not Detected; U Opiates Screen Not Detected; U Oxycodone Screen Not Detected; U Phencyclidine Screen Not Detected; U Propoxyphene Screen Not Detected
[2021-09-23] MEDS ORDERED: OXYB5 PO (08:22)
[2021-09-23] MEDS ORDERED: ELIQUIS5 M2 PO (08:26)
[2021-09-23] MEDS ORDERED: XARELTO20 MG PO (08:27)
--- NOTE | 2021-09-23 13:20 | NUR ---
PT HAD AN EPISODE OF BRADYCARDIA- PT WAS UP SITTING ON THE COMMODE WITH A STAFF MEMBER PRESENT. THE PT DID NOT APPEAR TO BE STRAINING SHE DID NOT HAVE A BM AT THIS TIME. PT DID APPEAR (PER REPORT FROM PEARL FISHERMAN) TO GET VERY TIRED SUDDENLY. CALLED DR PHILIP AND SPOKE TO HER ABOUT THE PT BRADYCARDIA. NO EKG ORDER AT THIS TIME PT IS NOW ASYMPTOMATIC. STATES IF THIS HAPPENS AGAIN AN EKG SHOULD BE DONE. CALLED SECURITY TEAM LEAD AND REQUESTED A CALL IF PT HR GOES DOWN TO THE 40'S. PT HAS NO S&S OF DISTRESS AT THIS TIME. DRY CLEANING CHECKER NOTIFIED. DR PIERRE'D PT METOPROLOL AND ORDERED SOME LABS.
--- NOTE | 2021-09-23 18:23 | NUR ---
SHIFT SUMMARY- PT HAD AN EPISODE OF BRADYCARDIA THIS AFTERNOON. DR AWARE, NO NEW ORDERS FOR THAT. CAME TO SPEAK TO THE PT AND HER FAMILY THIS EVENING AND SPOKE TO THEM ABOUT THE RESULTS OF THE MRI. THE PT AND FAMILY HAVE BEEN DISCUSSING THE OPTIONS PRESENTED, ON OPTION IS FOR THE PT TO TRANSFER FOR NEURO SURGERY FOR A BRAIN BIOPSY, PT AND FAMILY DO NOT SEEM TO BE INTERESTED IN THAT OPTION. ANOTHER OPTION IS AGRESSIVE ANTIBIOTIC TREATMENT WITH STEROIDS FOR THE SWELLING AND THE FINAL OPTION IS COMFORT MEASURES. PALLIAITVE CARE RN JB Tse HAS BEEN AT THE BEDSIDE SINCE JUST AFTER WAS IN TO TALK WITH THE FAMILY. IT SEEMS THEY ARE INTERESTED IN COMFORT CARE MORE THAN AGRESSIVE TREATMENT AT THIS TIME BUT NO DECISION HAS TRULY BEEN MADE YET. PT DID FILL OUT A POLST FORM EARLIER THIS MONTH STATING DNR SO CODE STATUS WILL BE CHANGED TO REFLECT HER WISHES. PT IS IN BED, CALL LIGHT IN REACH, SPOUSE JUST LEFT THE BEDSIDE. NO CURRENT S&S OF DISTRESS NOTED AT THIS TIME WILL CTM AND PASS ALL ON TO NIGHT RN.
--- NOTE | 2021-09-23 19:47 | NUR ---
Called to meet with family after new diagnosis given per neurosurgery consult. Met with and family to review options of care and risk and benefit. Physicn reviewed hisgh risk for bleeding with biopsy and stressors of cancer treatment. Family had many questions about prognosis and abilty to function if treatment given. We aslo reviewed risks of suffering up to and including . We reviewed comfort care and hospice. After family talked and pt assessed reviewed her discomfort she answers yes to having a headache and appers to have visual disturbance. is noting more twitching and photosensitivity. She is risk for seizures. He has decided he wants comfort care. He will rally his family and plan on getting her home on hospice. very tearfull but rellaying understandingof life. He relsys good support systems. Therputic conversation and will follow up with him to facilite grieving.
--- NOTE | 2021-09-24 04:12 | NUR ---
PT NOTED WITH RED RASH TO BACK/SIDE OF HEAD, UPPER BACK AND LOWER NECK AREA. THIS WAS NOT INITIALLY NOTED AT START OF SHIFT. PT HAD RECEIVED VANCOMYCIN, FLAGYL AND MERREM. PT NOT ABLE TO VERBALIZE IF SHE WAS ITCHY OR ANY DISCOMFORT STATED "OKAY." PT WAS NOT NOTED TO BE ITCHING OR SCRATCHING OR CHANGE IN STATUS OTHER THAN RASH. JESI SPINNING LATHE OPERATOR NOTIFIED WITH ORDERS PER JUN AND ALL IV ANTIBIOTICS TO BE HELD UNTIL ASSESSED BY MORNING HOSPITALIST. PEPCID AND BENADRYL GIVEN IV. OF NOW HEAD/FACE RASH IS GONE THERE IS MINIMAL REDNESS TO THE UPPER BACK. SECOND DOSE OF BENADRYL GIVEN 338. PT REMAINS WITH SEVERE EXPRESSIVE APHASIA AND INTERMITTENT RECEPTIVE APHASIA. ABLE TO STAND PIVOT TO COMMODE HOWEVER NOT ABLE TO USE CALL LIGHT APPROPRIATELY TO COMMUNICATE NEED TO USE BATHROOM. FREQUENT ROUNDING DONE AND PT ABLE TO VERBALIZE THE NEED TO URINATE ONCE IN THE ROOM. THIS SHIFT PT NOTED WITH INCREASED RIGHT ARM NEGLECT, STILL ABLE TO SLIGHTLY LIFT ARM HOWEVER IT APPEARS DECREASED COMPARED TO PREVIOUS NIGHT. PATIENT MONITORED CLOSELY AND NO SEIZURE ACTIVITY NOTED. PT IS VERY PLEASANT AND APPRECIATIVE OF CARE CONSTANTLY THANKING STAFF FOR CARE. REMAINS ON TELEMETRY WITH NO EVENT NOTIFICATIONS FROM TELE FIELD RECORDER. PT CODE STATUS CHANGED TO DNR AND DNR BAND PLACED ON PT. CODE STATUS VERIFIED WITH JB LAGOS RN.
--- NOTE | 2021-09-24 11:05 | NUR ---
Pt aggitated and labile. Increased eye blinking and rubbing. pt started on prn medications for comfort and aggitation. steroids made her too anxious. will try to avaoid narcotics at his time. pt sarted on ativan with good effect. pt still having itching and redness dallin keating added for comfort. Review with hospice plan. He had many questions about how she will progress and what hospice can do. gave him information on finding caregivers. It sounds like he may not need them. Family wants to help. He is struggling with asking for help. His daughter in law baby sits her tree small grandchildren. She is willing to help. Suggested he let her help and bring the children it will be theraputic. He does not have a preferance of company. pt will need a same day intake.
--- NOTE | 2021-09-24 11:41 | NUR ---
Upon responding to a call-back, I visit pt and family. Good cnversation ensued around priorities, love and support. Dtr, German, and spouse, Gigi, are engaged well as well as the pt. We talk about concerns and I answer questions regarding hospice and the services available. Pt agrees to prayer and so I gladly provide prayer. Pt is moved by the prayer and Gigi thought it to be to much for the pt and asked me to cease praying, which I immediately do. I return to more surface conversation and then let family return to their visiting. I will continue to remain available to patient and family.
--- NOTE | 2021-09-24 16:56 | NUR ---
SHIFT SUMMARY- PT ALERT OFF AND ON, SPOUSE AT THE BEDSIDE. PT SWITCHED TO COMFORT CARE TODAY, MULTIPLE FAMILY HAS VISITED, PT TRANSFERED TO ROOM 308 FOR THE LARGER SPACE. PT HAD NOT VOIDED AT ALL THIS SHIFT AT 1530 SO A BLADDER SCAN WAS DONE AND THE PLAN WAS TO PLACE A PETERSON IF THE PT WAS UNABLE TO VOID. WHEN STAFF TALKED TO THE PT SHE WAS WILLING TO TRY TO VOID. PT WAS ABLE TO VOID THE AMOUNT THE BLADDER SCAN SHOWED SO NO PETERSON WAS PLACED. PT HAS FREQUENTLY GARBLED SPEECH, AND ALSO SEEMS TO SAY THE OPPOSITE OF WHAT SHE MEANS. PT IS CURRENTLY IN BED SLEEPING WITH NO S&S OF DISTRESS. FAMILY IS HERE AT THE BEDSIDE AND IN THE [place]. PT SPOUSE WAS EMOTIONAL THIS MORING AND SEEMED TO NEED ADDITIONAL SUPPORT, REQUESTED A VISIT FROM PASTORAL CARE. THE PT BECAME EMOTIONAL WHEN HE SAID A PRAYER FOR THE PT AND THE SPOUSE GOT DEFENSIVE BECAUSE SHE WAS SAD. THE PT HAS BEEN ON A BIT OF AN EMOTIONAL ROLLERCOASTER TODAY, MANY UPS AND DOWNS. ATIVAN HAS BEEN GIVEN TWICE TO PREVENT SEIZURE ACTIVITY AND FOR AGGITATION. PT WAS HAVING JERKING INVOLUNTARY MOVEMENTS OF THE RIGHT LEG AND ARM PRIOR TO EACH DOSE OF ATIVAN.
--- NOTE | 2021-09-24 18:00 | NUR ---
COMFORT CARE NOTE- PT APPEARS TO BE COMFORTABLE AT THIS TIME NO S&S OF DISTRESS NOTED, MULTIPLE FAMILY AT THE BEDSIDE. SPOUSE IS CONCERNED THAT STAFF ARE NOT FEEEDING THE PT HOWEVER THE PT IS TOO SLEEPY TO BE FED SAFELY SHE WILL NOT OPEN HER EYES AND SPEAKS IF SHE IS TALKING TO PEOPLE WHO ARE NOT PRESENT.
--- NOTE | 2021-09-24 19:45 | NUR ---
COMFORT CARE NOTE- PT RESTING COMFORTABLY AT THIS TIME NO S&S OF DISTRESS. BEDSIDE REPORT COMPLETED WITH NIGHT RN.
--- NOTE | 2021-09-25 04:49 | NUR ---
PT IS ON COMFORT CARE, HAS STAYED AT PT BEDSIDE T/O SHIFT. PT MEDICATED FOR OLEARY PAIN WITH TYLENOL, SLEPT THROUGH MOST OF SHIFT. 2 ASSIST TO BSC, PT HAS BEEN CONTINENT.
--- NOTE | 2021-09-25 16:37 | NUR ---
PATIENT RESTING IN BED, ABLE TO ANSWER QUESTIONS, PATIENT REPORTS SHE IS COMFORTABLE AT THIS TIME, PATIENT REPOSITIONING SELF IN BED, DENIES THAT SHE NEEDS ANYTHING AT THIS TIME.
--- NOTE | 2021-09-25 18:07 | NUR ---
SHIFT SUMMARY: PATIENT RESTED WELL AND ATE WELL. PATIENT'S HEAD PAIN WAS CONTROLLED BY IBUPROFEN AND ACETAMINOPHEN. FAMILY WITH THE PATIENT THROUGHOUT THE DAY.
--- NOTE | 2021-09-26 04:38 | NUR ---
PT ON COMFORT MEASURES WITH AT BEDSIDE. PT C/O HEADACHE AND MEDICATED PER MAR. PT ABLE TO STAND PIVOT TO COMMODE. GARBLED SPEECH HOWEVER AT TIMES WHEN ASKED IS SHE NEEDS TO PEE SHE IS ABLE TO SAY YES WHILE OTHERS SHE IS NOT. NO NEW CONCERNS OVERNIGHT.
--- NOTE | 2021-09-26 17:05 | NUR ---
SHIFT SUMMARY- PT ASLEEP FOR MOST OF TODAY. PT WITH FAMILY AT SIDE. PT C/O OF PAIN THROUGH FACE SCALE, MEDICATED PER EMAR. PT C/O OF NEEDING TO MAKE A BM BUT UNSUCCESSFUL. PT RESTING NOW WITH BED ALARM, SIDE RAILS UPX3 AND CALL LIGHT WITHIN REACH.
--- NOTE | 2021-09-26 20:45 | NUR ---
PT VERBALIZED SHE IS COMFORTABLE AT THIS TIME AND DECLINES TO BE REPOSITIONED. DECLINES NEEDING TO USE THE RESTROOM. TOOK MEDS WITH PUDDING. SPOUSE AT BEDSIDE FOR SUPPORT.
[2021-09-27] MEDS ORDERED: JANTOVEN5 M2 PO (03:33)
[2021-09-27] MEDS ORDERED: JANTOVEN1 M2 PO (03:33)
[2021-09-27] MEDS ORDERED: AQUAPHOR ITCH R28 GM TOP (03:36)
[2021-09-27] MEDS ORDERED: Metronidazole T45 GM TOP (03:37)
[2021-09-27] MEDS ORDERED: BACLOFEN5 M5 PO (03:38)
--- NOTE | 2021-09-27 04:01 | NUR ---
SHIFT SUMMARY COMFORT CARE PT. TYLENOL + IBUPROFEN PRN FOR PAIN. UP WITH 1-2 ASSIST TO BSC. CAN REPOSITION SELF IN BED. NO ACUTE CHANGES. PLAN TO DISCHARGE HOME TODAY ON HOSPICE.
[2021-09-27] MEDS ORDERED: Ativan1 MG PO (10:06)
--- NOTE | 2021-09-27 11:18 | NUR ---
SHIFT SUMMARY- PT MORE ALERT TODAT THAN YESTERDAY. 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 PT COMMUNICATION MORE VERBAL THAN PREVIOUS DAY. PT CD/O PAIN, MEDICATED PER EMAR. PT WITH CALL LIGHT IN REACH, SIDE RAILS, AND BED ALARM IN PLACE. PT DISCHARGED- DISCUSSED PAPERWORK AND NEW MEDS WITH BROTHER IN LAW. SENT BELONGINGS WITH BROPTHER IN LAW. PT TRANSPORTED VIA AMBULANCE @1100 TO HOME DESTINATION.
== END 2021-09-27 11:13 | disposition hospice, home (50) | DRG 94 ==
LOC: ER 19:25 → MEDS 19:26 → UNDODEPER 09-23 00:36 → MEDS 09-23 00:51
PROVIDERS: Physician Assistant; ADMIT Internal Medicine
DX: G06.0 Intracranial abscess and granuloma (principal); G93.6 Cerebral edema; I67.89 Other cerebrovascular disease; G93.49 Other encephalopathy; R00.1 Bradycardia, unspecified; E03.9 Hypothyroidism, unspecified; Z66 Do not resuscitate; Z51.5 Encounter for palliative care; E78.5 Hyperlipidemia, unspecified; R73.03 Prediabetes; Z86.718 Personal history of other venous thrombosis and embolism; Z86.73 Personal history of transient ischemic attack (TIA), and cerebral infarction without residual deficits; Z79.01 Long term (current) use of anticoagulants; Z79.899 Other long term (current) drug therapy; Z88.0 Allergy status to penicillin; Z88.2 Allergy status to sulfonamides
CPT/HCPCS: 36415; 70450; 70496; 70498; 70553; 80053; 81001; 82947; 83605; 83880; 84443; 85025; 85610; 85651; 85730; 86140; 86403; 87040; 87086; 92610; 93005; 93010; 94760; 96365-59; 99285-25; A9270; A9579; G0378; J1100; J1200; J1953; J2185; J3370; J7030; J7060; Q9967